=== PATIENT | male | born 1970 | race Caucasian/White ===

== ENCOUNTER 2019-04-04 01:11 | Emergency (ER) | payer OTHER ==
[~2019-04-04] VITALS: Ht 175.3 cm; Wt 77.1 kg
[2019-04-04] MEDS ORDERED: KETO10TA2 PO (03:51)
== END 2019-04-04 03:57 | disposition home or self-care (01) ==
LOC: ER 01:11
DX: S97.81XA Crushing injury of right foot, initial encounter (principal); W22.8XXA Striking against or struck by other objects, initial encounter; Y93.89 Activity, other specified; Y92.89 Other specified places as the place of occurrence of the external cause